=== PATIENT | female | born 1960 | race Caucasian/White ===

== ENCOUNTER 2022-09-26 10:55 | Emergency (ER) | payer MEDICAID, OTHER ==
[~2022-09-26] VITALS: Ht 170.2 cm; Wt 83.6 kg
[~2022-09-26 10:55] MED LIST: ASPI-1198 PO; HYDR12.516 PO; INSU100C4 SQ; LISI20TA PO
[2022-09-26] MEDS ORDERED: ASPI-1451 PO (13:24)
[2022-09-26] MEDS ORDERED: PIOG30TA70 PO (13:24)
[2022-09-26] MEDS ORDERED: LIRA3PEN SQ (13:24)
[2022-09-26] MEDS ORDERED: INSLAN SQ (13:24)
[2022-09-26] MEDS ORDERED: INSU100V SQ (13:24)
[2022-09-26] MEDS ORDERED: HYDR25TA PO (13:24)
[2022-09-26] MEDS ORDERED: ATOR-2 PO (13:24)
[2022-09-26] MEDS ORDERED: LISI20TA24 PO (13:24)
[2022-09-26 13:30] VITALS: BP 145/76
[2022-09-26] MEDS ORDERED: KETOROLAC TROMETHAMINE 60 MG/2 ML VIAL IM ONE (13:30)
[2022-09-26] MEDS ORDERED: IBUP-1492 PO (13:33)
[2022-09-26] MEDS ORDERED: METH-659 PO (13:37)
== END 2022-09-26 13:34 | disposition home or self-care (01) ==
LOC: EMS 10:55
DX: S16.1XXA Strain of muscle, fascia and tendon at neck level, initial encounter (principal); S39.012A Strain of muscle, fascia and tendon of lower back, initial encounter; S00.531A Contusion of lip, initial encounter; E11.9 Type 2 diabetes mellitus without complications; I10 Essential (primary) hypertension; Z79.82 Long term (current) use of aspirin; Z79.4 Long term (current) use of insulin; Z79.899 Other long term (current) drug therapy; Y04.2XXA Assault by strike against or bumped into by another person, initial encounter; Y93.89 Activity, other specified; Y92.89 Other specified places as the place of occurrence of the external cause; Y99.8 Other external cause status
CPT/HCPCS: 99285; 72125; 82962; 72131; 96372; J1885